=== PATIENT | male | born 1970 | race American Indian/Alaskan Native ===

== ENCOUNTER 2020-11-08 08:49 | Emergency (ER) | payer OTHER, SELFPAY ==
[2020-11-08 09:43] VITALS: BP 139/81
--- NOTE | 2020-11-08 09:50 | Event Note ---
ED Screening Note Date of service: 11/08/20 Time: 09:49 ED Screening Note: Patient presents with frequent urination, dark urine, fever, tachycardia and elevated blood glucose. This initial assessment/diagnostic orders/clinical plan/treatment(s) is/are subject to change based on patients health status, clinical progression and re- assessment by fellow clinical providers in the ED. Further treatment and workup at subsequent clinical providers discretion. Patient/guardian urged not to elope from the ED as their condition may be serious if not clinically assessed and managed. Initial orders include: Sepsis protocol
--- NOTE | 2020-11-08 10:47 | XRay Report ---
CHEST 1 VIEW 11/08/2020 9:33 AM INDICATION / CLINICAL INFORMATION: fever. COMPARISON: None available. FINDINGS: SUPPORT DEVICES: None. HEART / MEDIASTINUM: Heart is upper normal size for AP portable technique. LUNGS / PLEURA: Patchy bilateral pulmonary opacities especially in the right lung base. No pneumothor ax. ADDITIONAL FINDINGS: No significant additional findings. IMPRESSION: 1. Possible early bilateral pneumonia. Atypical/viral pneumonia should be considered. Signer Name: Pankaj Sierra MD Signed: 11/08/2020 10:43 AM Workstation Name: [id number]
[2020-11-08 11:35] LABS: Basophils % (Auto) 0.1 % (0.0-1.8); Hematocrit 38.9 % (35.5-45.6); Hemoglobin 13.1 gm/dl (11.8-15.2); Lymphocytes # (Auto) 0.7 K/mm3 (1.2-5.4); Lymphocytes % (Auto) 6.5 % (13.4-35.0); Mean Corpuscular HGB Conc 34 % (32-34); Mean Corpuscular Volume 83 fl (84-94); Monocytes # (Auto) 0.8 K/mm3 (0.0-0.8); Platelet Count 175 K/mm3 (140-440); Red Blood Count 4.69 M/mm3 (3.65-5.03); Red Cell Distribution Width 15.5 % (13.2-15.2)
[2020-11-08 11:42] LABS: Albumin 3.8 g/dL (3.9-5)
[2020-11-08] MEDS ORDERED: dexAMETHasone 4 MG/ML VIAL IV ONE (15:49)
[2020-11-08] MEDS ORDERED: SODIUM CHLORIDE 0.9% 500 ML 500 ML IV ONE (15:49)
[2020-11-08] MEDS ORDERED: ACETAMINOPHEN 325 MG TAB PO ONE (15:51)
[2020-11-08] MEDS ORDERED: AZITHROMYCIN/NS 500 MG/250 ML 500 MG/250 ML BAG IV ONE (15:51)
[2020-11-08] MEDS ORDERED: cefTRIAXone/NS 1 GM/50 ML 1 GM/50 ML BAG IV ONE (15:51)
--- NOTE | 2020-11-08 15:53 | Emergency Department Report ---
ED General Adult HPI - General Chief complaint: Weakness Stated complaint: WEAKNESS PUI?: Yes Time Seen by Provider: 11/08/20 15:48 Source: patient, EMS ( EMS documentation not available at time of chart dictation ), RN notes reviewed Mode of arrival: Ambulatory Limitations: Physical Limitation - History of Present Illness Initial comments: The patient was evaluated in the emergency department for symptoms described in the history of present illness. He/she was evaluated in the context of the global COVID-19 pandemic, which necessitated consideration that the patient might be at risk for infection with the virus that causes COVID-19. Institutional protocols and algorithms that pertain to the evaluation of patients at risk for COVID-19 are in a state of rapid change based on information released by regulatory bodies including the CDC and federal and state organizations. These policies and algorithms were followed during the patient's care in the emergency department. Please note that these policies, procedures and recommendations changed on a rapid basis. The entire history and physical examination, I had on complete personal protective equipment. This patient is a 50-year-old gentleman who is not known to myself previously. He is morbidly obese with a body mass index of 40, and he does not follow with a primary care doctor, and he does not have medical conditions that he is aware of. He presents to the ER with a complaint of 1 week right-sided arm and leg numbness, reported unsteady gait, fever, chills, loss of taste and smell. No chest pain. Positive mild chest pain and discomfort with coughing. No urinary symptoms. No focal extremity weakness. No hematemesis of bright red blood per rectum. He has not received a COVID-19 vaccination. -: Gradual, days(s) Location: right, upper extremity, lower extremity Consistency: constant Improves with: none Worsens with: movement - Related Data Previous Rx's Medication Instructions Recorded Last Taken Type Albuterol Sulfate [Proair 90 mcg IH Q4HR PRN #2 aer.pow.ba 11/08/20 Unknown Rx Respiclick] Amoxicillin [Trimox CAP] 1,000 mg PO Q8H #28 capsule 11/08/20 Unknown Rx Aspirin [Aspirin BABY CHEW TAB] 81 mg PO QDAY #30 tab.chew 11/08/20 Unknown Rx Azithromycin [Zithromax TAB] 250 mg PO QDAY #6 tablet 11/08/20 Unknown Rx Allergies Allergy/AdvReac Type Severity Reaction Status Date / Time No Known Allergies Allergy Unverified 11/08/20 09:38 ED Review of Systems ROS: Stated complaint: WEAKNESS Other details as noted in HPI Constitutional: fever, malaise, weakness, other (Positive loss of taste and smell) Eyes: denies: eye discharge Respiratory: cough, shortness of breath, SOB with exertion, SOB at rest Cardiovascular: chest pain Gastrointestinal: denies: abdominal pain, nausea Genitourinary: denies: dysuria Musculoskeletal: arthralgia, myalgia Neurological: numbness ED Past Medical Hx - Past Medical History Previous Medical History?: Yes Additional medical history: morbid obesity - Surgical History Past Surgical History?: No - Social History Smoking Status: Never Smoker Substance Use Type: None - Medications Home Medications: Home Medications Medication Instructions Recorded Confirmed Last Taken Type Albuterol Sulfate [Proair 90 mcg IH Q4HR PRN #2 aer.pow.ba 11/08/20 Unknown Rx Respiclick] Amoxicillin [Trimox CAP] 1,000 mg PO Q8H #28 capsule 11/08/20 Unknown Rx Aspirin [Aspirin BABY CHEW TAB] 81 mg PO QDAY #30 tab.chew 11/08/20 Unknown Rx Azithromycin [Zithromax TAB] 250 mg PO QDAY #6 tablet 11/08/20 Unknown Rx ED Physical Exam - General Limitations: Physical Limitation General appearance: alert, in no apparent distress, obese - Head Head exam: Present: atraumatic, normocephalic - Eye Eye exam: Present: normal appearance, EOMI. Absent: nystagmus - ENT ENT exam: Present: normal exam, normal orophraynx, mucous membranes moist, normal external ear exam - Neck Neck exam: Present: normal inspection, full ROM. Absent: tenderness, meningism us - Respiratory Respiratory exam: Present: accessory muscle use, other (Pulmonary auscultation not performed secondary to lack of disposable stethoscope). Absent: stridor - Cardiovascular Cardiovascular Exam: Present: normal rhythm, tachycardia, other (Prehospital EKGs reviewed. Cardiac auscultation not performed secondary to lack of disposable stethoscope) - GI/Abdominal GI/Abdominal exam: Present: soft. Absent: distended, tenderness, guarding, rebound, rigid, pulsatile mass - Rectal Rectal exam: Present: deferred - Extremities Exam Extremities exam: Present: normal inspection, full ROM, other (2+ pulses noted in the bilateral upper and lower extremities. There is no palpable cord. negative Homans sign. Muscular compartments are soft. The pelvis is stable.). Absent: calf tenderness - Back Exam Back exam: Present: normal inspection - Neurological Exam Neurological exam: Present: alert, oriented X3, other (There is no facial droop. The tongue is midline. EOMI. 5 out of 5 strength in 4 extremities. Sensation is intact to light touch in left upper and left lower extremity. Endorses decrease sensation to light touch right arm and right leg) - Psychiatric Psychiatric exam: Present: normal affect, normal mood - Skin Skin exam: Present: warm, dry, intact, normal color. Absent: rash ED Course Vital Signs 11/08/20 09:41 Temperature 103.1 F H Pulse Rate 117 H Respiratory 20 Rate Blood Pressure 139/81 O2 Sat by Pulse 95 Oximetry - Reevaluation(s) Reevaluation #1: 11/08/20 16:18 Differential diagnosis, including but not limited to: Dehydration, COVID-19, subacute stroke, noncompliance Assessment and plan: 50-year-old gentleman with fever, tachycardia, loss of taste and smell, not vaccinated, x-ray of the chest and overall history and physical examination are very suspicious for COVID-19. He is found to be hyponatremic, with renal insufficiency and transaminitis. I suspect that this is a component of mild hypovolemic hyponatremia. Further labs ordered to work-up hyponatremia. He will be medicated empirically with antibiotics and steroids. He will also be given 500 cc of normal saline, as well as acetaminophen. Given propensity for COVID-19 patients to develop acute respiratory distress syndrome, we will withhold 30 cc/kg bolus of IV fluids, as we do not want to precipitate ARDS. I will defer to inpatient team to further work-up and evaluate his hyponatremia and address his systemic inflammatory response syndrome. He also endorses right-sided numbness and change in sensation for 7 days. Symptoms present for greater than 24 hours and 48 hours, therefore, CT angiogram, and TPA are not indicated. Noncontrast CT scan of the brain will be obtained. We have recommended admission and hospitalization. I have discussed this plan of care with the patient. He has articulated understanding. He is agreeable to this. We will admit this patient to the medical service once a CT scan of the brain has resulted. 11/08/20 17:09 CT scan of the brain negative for acute findings. Hospital physician is paged to arrange admission. They indicated they will call back when they are ready to admit the patient. 11/08/20 17:14 The patient has changed his mind about being admitted. The patient is going to sign out AGAINST MEDICAL ADVICE. The patient presents as awake, alert, oriented, sober, and exhibits decision-making capacity. He is free from distracting injury. The risks of leaving, including , disability, paralysis, permanent loss of quality of life were articulated to the patient. He articulated understanding in his own words. This conversation is witnessed by nurse Manolo Vivar Patient was encouraged to return to the emergency room right away if and when he changes his mind. ED Medical Decision Making - Lab Data Result diagrams: 11/08/20 10:51 11/08/20 16:19 Vital Signs 11/08/20 09:41 Temperature 103.1 F H Pulse Rate 117 H Respiratory 20 Rate Blood Pressure 139/81 O2 Sat by Pulse 95 Oximetry Lab Results 11/08/20 11/08/20 11/08/20 Range/Units 09:37 10:51 10:51 WBC 10.2 (4.5-11.0) K/mm3 RBC 4.69 (3.65-5.03) M/mm3 Hgb 13.1 (11.8-15.2) gm/dl Hct 38.9 (35.5-45.6) % MCV 83 L (84-94) fl MCH 28 (28-32) pg MCHC 34 (32-34) % RDW 15.5 H (13.2-15.2) % Plt Count 175 (140-440) K/mm3 Lymph % (Auto) 6.5 L (13.4-35.0) % Kay % (Auto) 8.0 H (0.0-7.3) % Eos % (Auto) 0.0 (0.0-4.3) % Baso % (Auto) 0.1 (0.0-1.8) % Lymph # (Auto) 0.7 L (1.2-5.4) K/mm3 Kay # (Auto) 0.8 (0.0-0.8) K/mm3 Eos # (Auto) 0.0 (0.0-0.4) K/mm3 Baso # (Auto) 0.0 (0.0-0.1) K/mm3 Seg Neutrophils % 85.4 H (40.0-70.0) % Seg Neutrophils # 8.7 H (1.8-7.7) K/mm3 Sodium 122 L (137-145) mmol/L Potassium 3.8 (3.6-5.0) mmol/L Chloride 84.2 L (98-107) mmol/L Carbon Dioxide 22 (22-30) mmol/L Anion Gap 20 mmol/L BUN 15 (9-20) mg/dL Creatinine 1.7 H (0.8-1.3) mg/dL Estimated GFR 43 ml/min BUN/Creatinine Ratio 9 % Glucose 181 H (75-100) mg/dL POC Glucose 201 H (70-105) mg/dL Lactic Acid (0.7-2.0) mmol/L Calcium 9.0 (8.4-10.2) mg/dL Total Bilirubin 0.50 (0.1-1.2) mg/dL AST 302 H (5-40) units/L ALT 93 H (7-56) units/L Alkaline Phosphatase 49 (35-129) units/L Total Protein 9.0 H (6.3-8.2) g/dL Albumin 3.8 L (3.9-5) g/dL Albumin/Globulin Ratio 0.7 % 11/08/20 11/08/20 Range/Units 10:51 15:01 WBC (4.5-11.0) K/mm3 RBC (3.65-5.03) M/mm3 Hgb (11.8-15.2) gm/dl Hct (35.5-45.6) % MCV (84-94) fl MCH (28-32) pg MCHC (32-34) % RDW (13.2-15.2) % Plt Count (140-440) K/mm3 Lymph % (Auto) (13.4-35.0) % Kay % (Auto) (0.0-7.3) % Eos % (Auto) (0.0-4.3) % Baso % (Auto) (0.0-1.8) % Lymph # (Auto) (1.2-5.4) K/mm3 Kay # (Auto) (0.0-0.8) K/mm3 Eos # (Auto) (0.0-0.4) K/mm3 Baso # (Auto) (0.0-0.1) K/mm3 Seg Neutrophils % (40.0-70.0) % Seg Neutrophils # (1.8-7.7) K/mm3 Sodium (137-145) mmol/L Potassium (3.6-5.0) mmol/L Chloride (98-107) mmol/L Carbon Dioxide (22-30) mmol/L Anion Gap mmol/L BUN (9-20) mg/dL Creatinine (0.8-1.3) mg/dL Estimated GFR ml/min BUN/Creatinine Ratio % Glucose (75-100) mg/dL POC Glucose (70-105) mg/dL Lactic Acid 1.50 1.30 (0.7-2.0) mmol/L Calcium (8.4-10.2) mg/dL Total Bilirubin (0.1-1.2) mg/dL AST (5-40) units/L ALT (7-56) units/L Alkaline Phosphatase (35-129) units/L Total Protein (6.3-8.2) g/dL Albumin (3.9-5) g/dL Albumin/Globulin Ratio % - EKG Data -: EKG Interpreted by Me Rate: tachycardia - EKG Data When compared to previous EKG there are: previous EKG unavailable 11/08/20 16:17 Prehospital EKG is reviewed and appreciated, and interpreted by myself at 04: 17 p.m. Sinus rhythm, tachycardia, rate 128 bpm. Normal axis, normal P wave axis. QTC 399 ms, VT interval 136 ms, QRS 102 ms. There is motion artifact. This is an abnormal EKG. This is not a STEMI. There is no prior for comparison. - Radiology Data Radiology results: pending, report reviewed, image reviewed [facility] [address] [place] [address] XRay Report Signed Patient: RAZA CHAVEZ MR#: [id number] [birth year] : 1970 Acct:[id number] Age/Sex: 50 / M ADM Date: 11/08/20 Loc: ED Attending Dr: Ordering Physician: MADDIE CRONIN Date of Service: 11/08/20 Procedure(s): XR chest 1V ap Accession Number(s): [id number] cc: MADDIE CRONIN Fluoro Time In Minutes: CHEST 1 VIEW 11/08/2020 9:33 AM INDICATION / CLINICAL INFORMATION: fever. COMPARISON: None available. FINDINGS: SUPPORT DEVICES: None. HEART / MEDIASTINUM: Heart is upper normal size for AP portable technique. LUNGS / PLEURA: Patchy bilateral pulmonary opacities especially in the right lung base. No pneumothorax. ADDITIONAL FINDINGS: No significant additional findings. IMPRESSION: 1. Possible early bilateral pneumonia. Atypical/viral pneumonia should be considered. Signer Name: Pankaj Sierra MD Signed: 11/08/2020 10:43 AM Workstation Name: [id number] Transcribed By: DT Dictated By: Malachi Sierra MD Electronically Authenticated By: Malachi Sierra MD Signed Date/Time: 11/08/20 104 DD/ 1043 CT HEAD WITHOUT CONTRAST INDICATION / CLINICAL INFORMATION: right sided numbness covid symptoms x 1 week. TECHNIQUE: All CT scans at this location are performed using CT dose reduction for ALARA by means of automated exposure contr ol. COMPARISON: None available. FINDINGS: HEMORRHAGE: No evidence of intracranial hemorrhage or extra-axial fluid collection. EXTRA-AXIAL SPACES: Cortical sulci, sylvian fissures and basilar cisterns have an unremarkable appearance. VENTRICULAR SYSTEM: The third and lateral ventricles are of normal size and configuration. CEREBRAL PARENCHYMA: No areas of abnormal brain parenchymal attenuation are identified. There is no indication of recent infarction. MIDLINE SHIFT OR HERNIATION: There is no mass effect. CEREBELLUM / BRAINSTEM: Brainstem and cerebellum have an unremarkable appearance. MIDLINE STRUCTURES:No abnormalities of the pituitary gland or pineal region are identified. INTRACRANIAL VESSELS:No abnormalities are identified on this noncontrast head CT. ORBITS: visualized portions of the orbits have an unremarkable appearance. SOFT TISSUES of HEAD: No significant abnormality. CALVARIUM: Evaluation of bone windows reveals no abnormalities. PARANASAL SINUSES / MASTOID AIR CELLS: Visualized portions of the paranasal sinuses are free from inflammatory mucosal disease. Mastoid air cells are normally pneumatized. IMPRESSION: 1. Normal head CT without contrast. Signer Name: Eduin Blake MD Signed: 11/08/2020 4:03 PM Critical Care Time: Yes Critical care time in (mins) excluding proc time.: 35 Critical care attestation.: If time is entered above; I have spent that time in minutes in the direct care of this critically ill patient, excluding procedure time. ED Disposition Clinical Impression: SIRS (systemic inflammatory response syndrome), Renal insufficiency, Hyponatremia, Right sided numbness, Suspected COVID-19 virus infection, COVID-19 vaccine series not completed, Obesity, Transaminitis Disposition: 07 LEFT AGAINST MEDICAL ADVICE Is pt being admited?: No Does the pt Need Aspirin: No Condition: Undetermined Additional Instructions: As we discussed, you have left the hospital/emergency room AGAINST MEDICAL ADVICE. By leaving, you risked , disability, paralysis, permanent loss of quality of life. The ER is open 24 hours a day, 7 days a week. It never closes. Please return to the emergency room right away if and when you change your mind. If you decide not to return to the emergency room, please follow-up with the listed physician referrals as soon as possible. Recommend that patient not drive or operate motor vehicles until cleared to do so. As we discussed, the patient most likely has novel coronavirus/COVID. the symptoms of COVID will typically persist 10 to 14 days. There is no cure at this time for COVID. Please make certain to self isolate and self quarantine, follow-up with an outpatient primary care doctor as soon as poss s, wash hands with soap and water frequently, thoroughly and often, patient may take the prescribed medications as needed and directed. Avoid interactions with the very elderly, very young, and those with chronic medical conditions. Return to the emergency room right away with new pain, worsening pain, migration of pain, projectile vomiting, change in mental status, confusion, inability to tolerate liquid feeds, new, worsened or different symptoms not present on the initial emergency room evaluation. Referrals: PRIMARY CAREMD [Primary Care Provider] - 3-5 Days MARTHA CENTENO MD [Staff Physician] - 3-5 Days GENA DEWITT MD [Staff Physician] - 3-5 Days [facility] [Provider Group] - 3-5 Days Forms: AMA Form
[2020-11-08 16:48] LABS: C-Reactive Protein 36.5 mg/dL (0.00-1.30)
--- NOTE | 2020-11-08 17:08 | Cat Scan Report ---
CT HEAD WITHOUT CONTRAST INDICATION / CLINICAL INFORMATION: right sided numbness covid symptoms x 1 week. TECHNIQUE: All CT scans at this location are performed using CT dose reduction for ALARA by means of automated e xposure control. COMPARISON: None available. FINDINGS: HEMORRHAGE: No evidence of intracranial hemorrhage or extra-axial fluid collection. EXTRA-AXIAL SPACES: Cortical sulci, sylvian fissures and basilar cisterns have an unremarkable appear ance. VENTRICULAR SYSTEM: The third and lateral ventricles are of normal size and configuration. CEREBRAL PARENCHYMA: No areas of abnormal brain parenchymal attenuation are identified. There is no i ndication of recent infarction. MIDLINE SHIFT OR HERNIATION: There is no mass effect. CEREBELLUM / BRAINSTEM: Brainstem and cerebellum have an unremarkable appearance. MIDLINE STRUCTURES:No abnormalities of the pituitary gland or pineal region are identified. INTRACRANIAL VESSELS:No abnormalities are identified on this noncontrast head CT. ORBITS: visualized portions of the orbits have an unremarkable appearance. SOFT TISSUES of HEAD: No significant abnormality. CALVARIUM: Evaluation of bone windows reveals no abnormalities. PARANASAL SINUSES / MASTOID AIR CELLS: Visualized portions of the paranasal sinuses are free from inf lammatory mucosal disease. Mastoid air cells are normally pneumatized. IMPRESSION: 1. Normal head CT without contrast. Signer Name: Eduin Blake MD Signed: 11/08/2020 5:03 PM Workstation Name: [id number]
[2020-11-08] MEDS ORDERED: ASPIRIN 81 MG TAB CHEW PO ONE (17:09)
[2020-11-08 20:52] LABS: Uric Acid 8.3 mg/dL (3.5-7.6)
== END 2020-11-08 17:18 | disposition left against medical advice (07) ==
LOC: ED 08:49
DX: I46.9 Cardiac arrest, cause unspecified (principal); N28.9 Disorder of kidney and ureter, unspecified; E87.1 Hypo-osmolality and hyponatremia; R20.0 Anesthesia of skin; R74.01 Elevation of levels of liver transaminase levels; J18.9 Pneumonia, unspecified organism; R65.10 Systemic inflammatory response syndrome (SIRS) of non-infectious origin without acute organ dysfunction; E66.01 Morbid (severe) obesity due to excess calories; Z20.822 Contact with and (suspected) exposure to COVID-19; Z28.9 Immunization not carried out for unspecified reason; Z79.899 Other long term (current) drug therapy; Z68.41 Body mass index [BMI] 40.0-44.9, adult
CPT/HCPCS: 36415; 70450; 71045; 80053; 82140; 82728; 82947; 82962; 83615; 83735; 84145; 84443; 84550; 85025; 85379; 86140; 87040